=== PATIENT | female | born 1945 | race American Indian/Alaskan Native ===

== ENCOUNTER 2018-06-07 14:15 | Outpatient (CLI) | payer MEDICARE ==
--- NOTE | 2018-06-07 15:59 | XRay Report ---
XRAY LUMBAR SPINE THREE VIEWS: 06/07/18 14:15:00 CLINICAL: Low back pain. FINDINGS: Moderate lower lumbar levoscoliosis centered at L3-4. L3-4 degenerative disc disease with vacuum disc phenomenon and large anterior and lateral osteophytes. L4-5 degenerative disc disease with narrowing of the disc space and anterior osteophytes. The rest of the disc spaces are intact. The pedicles are intact. Minimal facet joint disease. No fracture. Normal soft tissues. IMPRESSION: Moderate scoliosis and moderate degenerative disc disease at L3-4 and L4-5.
== END 2018-06-07 14:16 | disposition home or self-care (01) ==
LOC: SPVWC 14:15
DX: M51.36 Other intervertebral disc degeneration, lumbar region (principal); M41.86 Other forms of scoliosis, lumbar region
CPT/HCPCS: 72100

== ENCOUNTER 2018-07-04 15:47 | Outpatient (CLI) | payer MEDICARE ==
--- NOTE | 2018-07-04 21:54 | XRay Report ---
FINAL REPORT PROCEDURE: XR HIPS BILAT 2V W/PELVIS TECHNIQUE: Bilateral hip radiographs, 2 views each, including AP view of the pelvis. HISTORY: HIP PAIN COMPARISON: No prior studies are available for comparison. FINDINGS: Fracture (s) and/or Dislocation(s): None . Joint space(s): There is diffuse narrowing of bilateral hip joint spaces. Narrowing of the intervertebral disc spaces noted at L3-4 Soft tissues: Normal. Bone mineralization: Normal. Foreign bodies: None. IMPRESSION: Osteoarthritis bilateral hip joints Degenerative disc disease L4-5 No acute fracture
== END 2018-07-04 15:48 | disposition home or self-care (01) ==
LOC: SPVIMAG 15:47
DX: M16.0 Bilateral primary osteoarthritis of hip (principal)
CPT/HCPCS: 73521